=== PATIENT | female | born 1945 | race Two or more races ===

== ENCOUNTER 2017-08-31 14:25 | Outpatient (CLI) | payer OTHER | END 2017-08-31 14:31 | disposition home or self-care (01) | LOC: MAMO-SONO 14:25 | DX: Z12.31 Encounter for screening mammogram for malignant neoplasm of breast (principal); Z87.898 Personal history of other specified conditions; N64.4 Mastodynia; I10 Essential (primary) hypertension; Z68.31 Body mass index [BMI] 31.0-31.9, adult; E66.8 Other obesity; E03.8 Other specified hypothyroidism; K57.30 Diverticulosis of large intestine without perforation or abscess without bleeding; M81.0 Age-related osteoporosis without current pathological fracture; M89.9 Disorder of bone, unspecified; N20.0 Calculus of kidney; E78.4 Other hyperlipidemia ==

== ENCOUNTER 2018-10-15 10:35 | Outpatient (CLI) | payer OTHER | END 2018-10-15 10:42 | disposition home or self-care (01) | LOC: MAMO-SONO 10:35 | DX: N64.4 Mastodynia (principal); Z12.31 Encounter for screening mammogram for malignant neoplasm of breast; Z87.898 Personal history of other specified conditions ==

== ENCOUNTER 2019-01-09 08:21 | Emergency (ER) | payer OTHER ==
[~2019-01-09] VITALS: Ht 157.5 cm; Wt 76.7 kg
[2019-01-09] MEDS ORDERED: LIPITOR40 MG (08:38)
[2019-01-09] MEDS ORDERED: FOSAMAX70 MG (08:39)
== END 2019-01-09 12:59 | disposition home or self-care (01) ==
LOC: ER 08:21
DX: J45.998 Other asthma (principal); J02.9 Acute pharyngitis, unspecified; T78.49XA Other allergy, initial encounter; X58.XXXA Exposure to other specified factors, initial encounter

== ENCOUNTER 2019-11-21 13:27 | Outpatient (CLI) | payer OTHER ==
[~2019-11-21 13:27] MED LIST: FOSAMAX70 MG; LIPITOR40 MG
== END 2019-11-21 13:34 | disposition home or self-care (01) ==
LOC: MAMO-SONO 13:27
PROVIDERS: ATTEND General Practice
DX: Z12.31 Encounter for screening mammogram for malignant neoplasm of breast (principal); N64.59 Other signs and symptoms in breast

== ENCOUNTER 2019-12-06 11:55 | Outpatient (CLI) | payer OTHER | END 2019-12-06 12:12 | disposition home or self-care (01) | LOC: NUCLEAR 11:55 | PROVIDERS: ATTEND General Practice | DX: M81.0 Age-related osteoporosis without current pathological fracture (principal) ==

== ENCOUNTER 2020-05-07 12:01 | Outpatient (CLI) | payer OTHER | END 2020-05-07 12:03 | disposition home or self-care (01) | LOC: RAD 12:01 | PROVIDERS: ATTEND Internal Medicine Pulmonary Disease | DX: R05 Cough (principal) ==

== ENCOUNTER 2020-11-20 08:00 | Outpatient (CLI) | payer OTHER | END 2020-11-20 08:30 | disposition home or self-care (01) | LOC: PPH VACUNA 08:00 | PROVIDERS: ATTEND Emergency Medicine Pediatric Emergency Medicine | DX: Z23 Encounter for immunization (principal) ==

== ENCOUNTER → 2021-02-22 | Outpatient (CLI) | payer OTHER | END | disposition home or self-care (01) | LOC: MAMO-SONO 02-19 14:50 | PROVIDERS: ATTEND General Practice | DX: Z12.31 Encounter for screening mammogram for malignant neoplasm of breast (principal); Z87.898 Personal history of other specified conditions; N63.12 Unspecified lump in the right breast, upper inner quadrant ==

== ENCOUNTER 2022-04-24 13:13 | Outpatient (CLI) | payer OTHER | END 2022-04-24 13:15 | disposition home or self-care (01) | LOC: NUCLEAR 13:13 | PROVIDERS: ATTEND General Practice | DX: M81.0 Age-related osteoporosis without current pathological fracture (principal) ==

== ENCOUNTER 2022-04-24 14:00 | Outpatient (CLI) | payer OTHER | END 2022-04-24 14:06 | disposition home or self-care (01) | LOC: MAMO-SONO 14:00 | PROVIDERS: ATTEND General Practice | DX: R92.0 Mammographic microcalcification found on diagnostic imaging of breast (principal) ==

== ENCOUNTER 2023-04-27 09:46 | Outpatient (CLI) | payer OTHER | END 2023-04-27 09:50 | disposition home or self-care (01) | LOC: MAMO-SONO 09:46 | PROVIDERS: ATTEND General Practice | DX: N63.0 Unspecified lump in unspecified breast (principal); Z12.31 Encounter for screening mammogram for malignant neoplasm of breast ==

== ENCOUNTER 2024-04-07 09:45 | Inpatient (IN) | payer OTHER ==
[~2024-04-07] VITALS: Ht 157.5 cm; Wt 70.3 kg
[2024-04-07 11:09] VITALS: BP 150/80
[2024-04-07 11:13] VITALS: BP 141/81
[2024-04-07] MEDS ORDERED: [UNRECOGNIZED DRUG - OTHER] (11:17)
[2024-04-07 11:21] LABS: HEMOGLOBIN 13.5 g/dL (12.0-15.00); MEAN CELL VOLUME 93.8 fL (80.00-100.00); MEAN CORPUSCULAR HEMOGLOBIN 31.6 pg (27.00-32.0); MEAN CORPUSCULAR HGB CONC 33.7 g/dl (32.0-36.0); PLATELET COUNT 287 K/uL (150-450); RED BLOOD COUNT 4.26 M/uL (4.00-6.00)
[2024-04-07 11:22] LABS: PH,URINE 7.5 (5.0-8.0); URINE APPEARANCE Clear; URINE BACTERIA 74.6 uL (0.0-1933); URINE BILIRRUBIN Negative (NEGATIVE); URINE BLOOD Negative; URINE COLOR Yellow; URINE EPITHELIAL CELLS 6.8 uL (0.0-38.8); URINE GLUCOSE Negative (NEGATIVE); URINE KETONE Negative (NEGATIVE); URINE LEUKOCYTE Negative; URINE NITRATE Negative; URINE PROTEIN Negative (NEGATIVE); URINE RBC 8.1 uL (0.0-20.8); URINE UROBILINOGEN 0.2 E.U./dl; URINE WBC 4.2 uL (0.0-23.2)
[2024-04-07 11:40] LABS: INR 0.96; PROTHROMBIN TIME 10.5 SECONDS (9.0-11.5)
[2024-04-07 12:34] LABS: ALBUMIN 3.7 gm/dL (3.4-5.0); BILIRUBIN TOTAL 0.61 mg/dL (0.3-1.2); CALCIUM 9.7 mg/dL (8.5-10.1); CREATININE SERUM 0.5 mg/dL (0.55-1.02); GFR 119.02; GLOBULINA 3.4 G/DL (2.4-3.5); POTASSIUM 4.14 mEq/L (3.5-5.1); TOTAL PROTEIN 7.1 gm/dL (6.4-8.2)
[2024-04-13] MEDS ORDERED: CEFAZOLIN SODIUM 1,000 MG VIAL ONE (10:08)
[2024-04-13] MEDS ORDERED: POVIDONE-IODINE 118 ML BOTT TOP ONE (10:25)
[2024-04-13] MEDS ORDERED: LIDOCAINE HCL 1%/EPINEPHRINE 20ML VIAL IJ ONE (10:39)
[2024-04-13] MEDS ORDERED: CEFAZOLIN SODIUM 1,000 MG VIAL IV STA (13:37)
[2024-04-13] MEDS ORDERED: KETOROLAC TROMETHAMINE 10 MG TABLET PO SCH (14:00)
[2024-04-13 16:48] VITALS: BP 150/80
[2024-04-13 20:00] VITALS: BP 145/78
[2024-04-14 00:14] VITALS: BP 126/56
[2024-04-14 04:59] VITALS: BP 123/61
[2024-04-14 08:12] VITALS: BP 138/68
== END 2024-04-14 10:02 | disposition home or self-care (01) | DRG 748 ==
LOC: O/R 04-13 06:47 → SURH 04-13 09:45 → OB/GYN 04-13 14:13
PROVIDERS: ADMIT Obstetrics & Gynecology; ATTEND Obstetrics & Gynecology
PROC: 0JQC0ZZ Repair Pelvic Region Subcutaneous Tissue and Fascia, Open Approach (ICD-10-PCS; principal; 2024-04-13 09:45)
DX: N81.11 Cystocele, midline (principal)

== ENCOUNTER 2024-05-06 10:42 | Outpatient (CLI) | payer OTHER ==
[~2024-05-06 10:42] MED LIST changes: +[UNRECOGNIZED DRUG - OTHER]
== END 2024-05-06 10:45 | disposition home or self-care (01) ==
LOC: MAMO-SONO 10:42
PROVIDERS: ATTEND General Practice
DX: N64.4 Mastodynia (principal); Z12.31 Encounter for screening mammogram for malignant neoplasm of breast

== ENCOUNTER 2024-05-23 13:07 | Outpatient (CLI) | payer OTHER | END 2024-05-23 13:13 | disposition home or self-care (01) | LOC: NUCLEAR 13:07 | PROVIDERS: ATTEND General Practice | DX: M81.0 Age-related osteoporosis without current pathological fracture (principal) ==